=== PATIENT | female | born 1970 ===

== ENCOUNTER 2022-03-21 08:27 | Day surgery (SDC) | payer OTHER ==
[2022-03-21 08:35] VITALS: BMI 20.5
[2022-03-21 08:56] LABS: MPV 11.1 fL (7.6-11.3)
[2022-03-21 09:00] LABS: Protime INR 1.12
[2022-03-21 09:54] VITALS: TEMP 97.5
--- NOTE | 2022-03-21 10:10 | RAD REPORT ---
EXAM DESCRIPTION: US - Abdomen Exam Limited - 03/21/2022 10:01 am CLINICAL HISTORY: Ascites COMPARISON: None. FINDINGS: The patient presented for paracentesis. Ultrasound demonstrates a a very small amount ascites within the abdomen and pelvis. IMPRESSION: Very small amount of ascites within the abdomen and pelvis. Consequently the paracentesi s was not performed.
[2022-03-21 10:17] VITALS: BP 93/52; O2SAT 99
== END 2022-03-21 10:11 | disposition home or self-care (01) ==
LOC: DS 08:27
PROVIDERS: ATTEND Internal Medicine Gastroenterology
DX: R18.8 Other ascites (principal); K74.60 Unspecified cirrhosis of liver; Z53.09 Procedure and treatment not carried out because of other contraindication
CPT/HCPCS: 36415; 76705; 85049; 85610; 85730

== ENCOUNTER 2022-12-14 10:22 | Emergency (ER) | payer OTHER ==
--- OUTSIDE RECORDS SUMMARY | 2022-12-14 10:25 | XMS REPORT | Continuity of Care Document ---
:1970 Author Organization [facility] t Address [address] [place] [address] Care Team Providers Name Role Phone JOSE VALE Primary Care Physician Unavailable Vin Oconnor Attending Clinician [facility] Attending Clinician Unavailable Ascencion Holcomb MD Attending Clinician Unavailable Alex Surgeon Attending Clinician Unavailable IRVING COX Attending Clinician Unavailable Irving Cox Attending Clinician [facility] Admitting Clinician Unavailable Payers Payer Name Policy Type Policy Number Effective Date Expiration Date S mally [employer] PPO OPEN [id number] 2020 00:00:00 [facility] NAP Problems This patient has no known problems. Allergies, Adverse Reactions, Alerts Allergy Allergy Status Severity Reaction(s) Onset Inactive Treating Comm ents Source Name Type Date Date Clinician ADHESIVE Allergy [facility] PENICILL Allergy Active [facility] Adhesive Propensi Active Use Paper [facility] adverse 00:00: only; Medical reaction 00 [facility] s tolerated Penicill Propensi Active [facility] adverse 00:00: Medical reaction 00 Center s Social History Social Habit Start Date Stop Date Quantity Comments Source History SDOH [facility] Alcohol Std Drinks Medica l Center History SDOH [facility] Alcohol Binge Medical Jey ter History SDOH [facility] Alcohol Comment Medical C enter Alcohol intake 2022-04-06 2022-04-[address] [facility] 00:00:00 00:00:00 non-drinker Medical Garo pennington (finding) Tobacco use and 2022-04-05 2022-04-[address] [facility] exposure 00:00:00 00:00:00 Medical Center History SDOH 2022-04-05 2022-04-[address] [facility] Alcohol Frequency 00:00:00 00:00:00 Medical Center Sex Assigned At [birth year] [facility] 00:00:00 00:00:00 Medical Center Smoking Status Start Date Stop Date Source Tobacco smoking consumption [facility] unknown Current every day smoker 2022-04-05 00:00:00 [facility] Medications Ordered Filled Start Stop Current Ordering Indication Dosage Frequency Signature Comments Components Source Medication Medication Date Date Medication? Clinician (SIG) Name Name carvediloL Yes 6.25mg Take 6.[address] (COREG) 6-02 mg by [facility] 6.25 MG 17:22: mouth 2 Medical tablet 01 (two) Center times daily with breakfast and dinner. furosemide Yes 20mg Q.5D Take [address] (LASIX) 20 6-02 by mouth 2 Emma es MG tablet 17:22: (two) Medical 01 times Center daily. spironolact Yes 25mg QD Take [address] one 6-02 by mouth [facility] (ALDACTONE) 17:22: daily. Medi irma 25 MG 01 Center tablet Vital Signs Vital Name Observation Time Observation Value Comments Source HEIGHT 2022-04-06 09:00:00 167.6 cm WEIGHT 2022-04-06 09:00:00 57.7 kg HEIGHT 2022-04-05 16:18:00 170.2 cm WEIGHT 2022-04-05 16:18:00 58.06 kg HEIGHT 2022-04-06 09:00:00 167.6 cm WEIGHT 2022-04-06 09:00:00 57.7 kg HEIGHT 2022-04-05 16:18:00 170.2 cm WEIGHT 2022-04-05 16:18:00 58.06 kg HEIGHT 2022-04-06 09:00:00 167.6 cm WEIGHT 2022-04-06 09:00:00 57.7 kg HEIGHT 2022-04-05 16:18:00 170.2 cm WEIGHT 2022-04-05 16:18:00 58.06 kg Body height 2022-08-25 14:41:00 167.6 cm [facility] Body weight 2022-08-25 14:41:00 62.596 kg [facility] BMI 2022-08-25 14:41:00 22.27 kg/m2 [facility] Systolic blood 2022-04-06 17:00:00 111 mm[Hg] [facility] Diastolic blood 2022-04-06 17:00:00 57 mm[Hg] [facility] Heart rate 2022-04-06 17:00:00 79 /min [facility] Body temperature 2022-04-06 17:00:00 36.44 [facility] Respiratory rate 2022-04-06 17:00:00 16 /min [facility] Oxygen saturation in 2022-04-06 17:00:00 97 /min [facility] Arterial blood by Medical Ce nter Pulse oximetry Body height 2022-04-06 09:00:00 167.6 cm [facility] Body weight 2022-04-06 09:00:00 57.7 kg [facility] BMI 2022-04-06 09:00:00 20.53 kg/m2 [facility] Procedures Procedure Date / Time Performing Clinician Source Performed MRI CHOLANGIOGRAM W WO 2022-08-25 15:40:28 Vin Oconnor [facility] CONTRAST TISSUE EXAM 2022-04-06 14:07:00 Ascenc[facility] Holcomb [facility] US LIVER BIOPSY 2022-04-06 14:04:00 System, Provider Not [facility] [place] CBC W/PLT COUNT & AUTO 2022-04-06 10:05:00 Elizabeth May [facility] DIFFERENTIAL [facility] PROTHROMBIN TIME/INR 2022-04-06 10:05:00 Elizabeth May [facility] CBC W/PLT COUNT & AUTO 2022-04-06 10:05:00 Elizabeth May [facility] DI[facility] Plan of Care Planned Activity Planned Date Details Comments Source Future Scheduled 2022-11-[address] [facility] Test 00:00:00 (12+) [code = Medical Center DEPRESSION SCREENING (12+)] Future Scheduled 2022-10-24 COVID-19 VACCINE (#1) [facility] Test 22:50:18 [code = COVID-19 VACCINE (#1)] Future Scheduled 2022-10-24 Pneumococcal Vaccine: [facility] Test 22:50:18 Pediatrics (0 to 5 Years) and At-Risk Patients (6 to 64 Years) (1 - PCV) [code = Pneumococcal Vaccine: Pediatrics (0 to 5 Years) and At-Risk Patients (6 to 64 Years) (1 - PCV)] Future Scheduled 2022-10-24 Hepatitis C screening [facility] Test 22:50:18 (procedure) [code = 555503494] Future Scheduled 2022-10-24 Screening for [facility] Test 22:50:18 malignant neoplasm of cervix (procedure) [code = 662260383] Future Scheduled 2022-10-24 BREAST CANCER [facility] Test 22:50:18 SCREENING [code = BREAST CANCER SCREENING] Future Scheduled 2022-10-24 COLONOSCOPY SCREENING [facility] Test 22:50:18 [code = COLONOSCOPY SCREENING] Future Scheduled 2022-10-24 SHINGLES VACCINES (1 Met [facility] Test 22:50:18 of 2) [code = SHINGLES VACCINES (1 of 2)] Future Scheduled 2022-10-24 INFLUENZA VACCINE Method [facility] Test 22:50:18 [code = INFLUENZA VACCINE] Future Scheduled 2022-10-24 HEPATITIS B VACCINES Met [facility] Test 22:50:18 (1 of 3 - 3-dose series) [code = HEPATITIS B VACCINES (1 of 3 - 3-dose series)] Future Scheduled 2022-07-07 INFLUENZA VACCINE (#1) [facility] Test 00:00:00 [code = INFLUENZA Medical Ce nter VACCINE (#1)] Future Scheduled 2018 SHINGLES VACCINES ([address] [facility] Test 00:00:00 of 2) [code = SHINGLES Medic al Center VACCINES (1 of 2)] Future Scheduled [address] [facility] Test 00:00:00 (procedure) [code = Medical Center [id number]] Future Scheduled [address] [facility] Test 00:00:00 malignant neoplasm of Medica l Center cervix (procedure) [code = 309617511] Future Scheduled 1987 DTAP/TDAP/TD VACCINES [facility] Test 00:00:00 (1 - Tdap) [code = Medical C enter DTAP/TDAP/TD VACCINES (1 - Tdap)] Future Scheduled 1986 HEPATITIS C SCREENING [facility] Test 00:00:00 [code = HEPATITIS C Medical Center SCREENING] Future Scheduled [address] [facility] Test 00:00:00 Counseling and Medical Cente r Screening (12+) [code = Tobacco Cessation Counseling and Screening (12+)] Future Scheduled [address] [facility] Test 00:00:00 0-64 YRS (1 - PCV) Medical C enter [code = PNEUMOCOCCAL VACCINE 0-64 YRS (1 - PCV)] Future Scheduled 1970 COVID-19 VACCINE (#1) [facility] Test 00:00:00 [code = COVID-[address] VACCINE (#1)] Future Scheduled [address] [facility] Test 00:00:00 malignant neoplasm of Medica l Center breast (procedure) [code = 757988900] Future Scheduled [address] [facility] Test 00:00:00 (combo) [code = CT Medical C enter Colonography (combo)] Future Scheduled [address] [facility] Test 00:00:00 malignant neoplasm of Medica l Center colon (procedure) [code = 623417880] Future Scheduled [address] [facility] [facility] Test 00:00:00 malignant neoplasm of Medica l Center colon (procedure) [code = 172194415] Future Scheduled [address] [facility] [facility] Test 00:00:00 malignant neoplasm of Medica l Center colon (procedure) [code = 765356474] Future Scheduled [address] [facility] Test 00:00:00 malignant neoplasm of Medica l Center colon (procedure) [code = 308291398] Future Scheduled 1970 Sigmoidoscopy [code = CH Damián Alfredo Test 00:00:00 Sigmoidoscopy] Medical Centsidra r Encounters Start End Encounter Admission Attending Care Care Encounter Source Date/Time Date/Time Type Type Clinicians Facility Department ID 2022-08-25 2022-08-25 Outpatient [facility] [id number] [place] 00:00:00 00:00:[address] 2022-08-11 2022-08-11 Transcribe Vin Oconnor [id number] Methodi 00:00:00 00:00:[id number] 3.430.2.7 Hospit a .3.564172 l .8 2022-04-06 2022-04-06 [facility]patient [facility] [id number] [facility] 08:52:00 17:22:00 2022-04-06 2022-04-06 [facility] Holcomb [facility] [id number] 08:52:00 17:22:00 Encounter [facility] 2022-04-06 2022-04-06 Surgery [facility] [id number] 12:00:00 12:30:00 [facility] 2022-04-06 2022-04-06 Outpatient EL [facility], [facility] [id number] SLE 11:03:49 11:03:49 [place] 2022-04-05 2022-04-[address] [facility] [id number] SLE 16:23:24 23:59:00 2022-04-05 2022-04-05 [facility] [id number] 15:05:00 23:59:00 Encounter [facility] 2022-04-05 2022-04-05 Travel [facility] [id number] [facility] 00:00:00 00:00:00 [facility] 2022-03-31 2022-03-31 Outside Kenny, [facility] [id number] 00:00:00 00:00:00 Orders [facility] Results Test Description Test Time Test Comments Results Result [facility] e Comments U/S, BIOPSY, Reason for LIVER 2 Exam:->UNSPECI 18:38:00 [facility] 1970 Sex: F FINAL REPORT History: Cirrhosis. PROCEDURE: Following informed written consent, limited sonographic examination of the right upper quadrant and liver were performed. A skin site was identified, prepped and draped in the usual sterile manner. 2% lidocaine was given locally for anesthesia. Additionally, the patient received 1 mg IV Versed and 50 mcg IV fentanyl for conscious sedation and pain control. Vital signs were monitored and remained stable. Conscious sedation and continuous patient monitoring were provided by the attending radiologist and a registered nurse for 10 minutes during the procedure. Using ultrasound guidance, a 16-gauge Biopince needle and an anterolateral right upper quadrant approach, a total of two 16-gauge core tissue samples were obtained from the liver and submitted in formalin to pathology for evaluation. Overall, the patient tolerated the procedure well without immediate competitions and was discharged from the department in stable condition. FINDINGS: Limited sonographic examination the liver performed prior to, during and following the biopsy demonstrates a fusiform heterogeneous liver echogenicity. During the biopsy, the needle tip is noted to lie within the right hepatic lobe. After the biopsy, there are no perihepatic fluid collections or evidence for hemorrhage. IMPRESSION: 1. Technically successful uncomplicated ultrasound-guided core biopsy of the liver. Signed: Lesli Fritzort Verified Date/Time: 04/07/2022 18:38:15 Reading Location: [facility] Imaging [place] [address] 1.310.12 UE EXAM Surgical Pathology Report 2 Case: [id number] 13:22:47 Authorizing Provider: [facility] Holcomb MD Collected: 04/06/2022 02:07 PM Ordering Location: [facility] PERIOPERATIVE Received: 04/06/2022 04:25 PM SERVICES Pathologist: Leah Maurice MD Specimen: Biopsy, Liver A. LIVER, ULTRASOUND GUIDED BIOPSY: -Liver with cirrhosis, see comment Signing Pathologist Direct Phone Line: [phone] y signed by Leah Maurice MD on 04/07/2022 at 1:22 PMTrichrome and reticulin stain show bridging fibrosis with well-formed micro nodules formation (stage IV), consistent with cirrhosis. The portal tracts are incorporated into the fibrous septa and show moderate lymphocytic inflammatory infiltrate, with one well-formed lymphoid aggregate with germinal center and extensive bile ductular proliferation. Several of the bile ductules are infiltrated by neutrophils (acute cholangitis).. Mild interface inflammatory activity is noted around some of the nodules. The hepatic nodules show moderate cholestasis and a few ballooned hepatocytes are seen, however no significant steatosis is noted. Several Usha Denk bodies are noted in ballooned hepatocytes, especially at the periphery of the nodules.Iron stain shows no evidence of iron deposition. PAS-D stain shows no evidence of hyaline globules. Patient is a 51 year old woman with clinical history of portal hypertension and cirrhosis. No liver function tests are available on the electronic records. The findings are consistent with cirrhosis. Based on the presence of scattered ballooned hepatocytes and Usha hyaline, this may represent a burned-out steatohepatitis. Chronic hepatitis C should be clinically ruled out.Clinical correlation is recommended. [id number] cirrhosis of liverA. Biopsy, Liver.Received in formalin labeled with the patient's name, medical record number and "liver" are 2 díaz soft tissue cores measuring up to 1.6 cm in greatest length by 0.2 cm in diameter, which are submitted in toto in A1.GRISELDA Talbot, HT (ASCP)PerformedThe interpretation of this case included the use of immunohistochemistry or special stains.Control Slides Examined: In-house known positive controls were evaluated along with the test tissue. These control slides run alongside of the patients sample show appropriate staining. Internal positive and negative controls when available are evaluated Immunohistochemistry technical testing was performed at [facility], Pathology Laboratory where it was developed and its performance characteristics were determined. It has not been cleared or approved by the U.S. Food and Drug Administration. The FDA has determined that such clearance or approval is not necessary. The test is used for clinical purposes. It should not be regarded as investigational or for research. This laboratory is certified under the Clinical Laboratory Improvement Amendments of 1988 (CLIA-88) as qualified to perform high complexity clinical laboratory testing.[facility], Department of Pathology, [address] [place] [address], [facility], [address] [place] [address], [facility], [address] [place] [address], PROTHROMBIN TIME/INR 2022-04-06 12:38:20 Test Item Value Reference Range Interpretation Comme nts PROTIME (Eons) (test code 13.4 seconds 11.9-14.2 = 759) INR (Eons) (test code = 1.04 See_Comment [ Automated message] The [employer] system which ge nerated this result transmit waldo reference range: <=5.90. The reference range was not u sed to interpret this result as normal/abnormal . RECOMMENDED COUMADIN/WARFARIN INR THERAPY RANGESSTANDARD DOSE: 2.0 - 3.0 Includes: PROPHYLAXIS for venous thrombosis, systemic embolization; TREATMENT for venous thrombosis and/or pulmonary embolus.HIGH RISK: Target INR is 2.5-3.5 for patients with mechanical heart valves.CBC W/PLT COUNT & AUTO [id number] 12:32:59 Test Item Value Reference Range Interpretation Comments WHITE BLOOD CELL COUNT 11.6 K/ L 3.5-10.5 H (BEAKER) (test code = 775) RED BLOOD CELL COUNT 3.82 M/ L 3.93-5.22 L (BEAKER) (test code = 761) HEMOGLOBIN (BEAKER) 13.3 GM/DL 11.2-15.7 (test code = 410) HEMATOCRIT (BEAKER) 37.9 % 34.1-44.9 (test code = 411) MEAN CORPUSCULAR 99.2 fL 79.4-94.8 H VOLUME (BEAKER) (test code = 753) MEAN CORPUSCULAR 34.8 pg 25.6-32.2 H HEMOGLOBIN (BEAKER) (test code = 751) MEAN CORPUSCULAR 35.1 GM/DL 32.2-35.5 HEMOGLOBIN CONC (BEAKER) (test code = 752) RED CELL DISTRIBUTION 16.1 % 11.7-14.4 H WIDTH (BEAKER) (test code = 412) PLATELET COUNT 189 K/CU MM 150-450 (BEAKER) (test code = 756) MEAN PLATELET VOLUME Unable to report due (BEAKER) (test code = to abn ormal Platelet 754) population distribution. NUCLEATED RED BLOOD 0 /100 WBC 0-0 CELLS (BEAKER) (test code = 413) NEUTROPHILS RELATIVE 69 % PERCENT (BEAKER) (test code = 429) LYMPHOCYTES RELATIVE 19 % PERCENT (BEAKER) (test code = 430) MONOCYTES RELATIVE 9 % PERCENT (BEAKER) (test code = 431) EOSINOPHILS RELATIVE 2 % PERCENT (BEAKER) (test code = 432) BASOPHILS RELATIVE 1 % PERCENT (BEAKER) (test code = 437) NEUTROPHILS ABSOLUTE 7.96 K/ L 1.56-6.13 H COUNT (BEAKER) (test code = 670) LYMPHOCYTES ABSOLUTE 2.22 K/ L 1.18-3.74 COUNT (BEAKER) (test code = 414) MONOCYTES ABSOLUTE 1.00 K/ L 0.24-0.36 H COUNT (BEAKER) (test code = 415) EOSINOPHILS ABSOLUTE 0.22 K/ L 0.04-0.36 COUNT (BEAKER) (test code = 416) BASOPHILS ABSOLUTE 0.11 K/ L 0.01-0.08 H COUNT (BEAKER) (test code = 417) IMMATURE 1 % 0-1 GRANULOCYTES-RELATIVE PERCENT (BEAKER) (test code = 2801)
[2022-12-14] MEDS ORDERED: PANTOPRAZOLE 40 MG INJ ONE (11:26)
[2022-12-14 11:49] LABS: Hematocrit 27.1 % (36.0-45.0); MPV 10.3 fL (7.6-11.3); RBC Red Blood Cell Count 2.38 M/uL (3.86-4.86)
[2022-12-14 11:51] LABS: Protime INR 1.35
[2022-12-14] MEDS ORDERED: NA CHLORIDE 0.9% 1,000 ML ONE (12:00)
[2022-12-14] MEDS ORDERED: OCTREOTIDE 500 MCG in NA CHLORIDE 0.9% 500 ML IV SCH (12:00)
[2022-12-14] MEDS ORDERED: PANTOPRAZOLE INJ 80 MG in NA CHLORIDE 0.9% 250 ML IV SCH (12:00)
[2022-12-14] MEDS ORDERED: NA CHLORIDE 0.9% 500 ML ONE (12:08)
[2022-12-14 12:15] LABS: Albumin 2.2 g/dL (3.4-5.0); Potassium 4.5 mmol/L (3.5-5.1); Protein, Total 5.6 g/dL (6.4-8.2)
[2022-12-14 12:16] LABS: Bilirubin Total 5.4 mg/dL (0.2-1.0)
[2022-12-14 12:26] LABS: SARS-CoV-2 Antigen Rapid Res Negative (Negative)
--- NOTE | 2022-12-14 12:27 | RAD REPORT ---
EXAM DESCRIPTION: RAD - Chest Single View - 12/14/2022 12:22 pm CLINICAL HISTORY: COUGH Chest pain. COMPARISON: No comparisons FINDINGS: Portable technique limits examination quality. The lungs are grossly clear. The heart is normal in size. No displaced fractures. IMPRESSION: No acute intrathoracic process suspected.
--- NOTE | 2022-12-14 12:45 | EDPHYS ---
Physician Documentation [facility] Name: Jessi Keller Age: 52 yrs Sex: Female : 1970 Arrival Date: 12/14/2022 Time: 10:26 Bed 15 Private MD: ED Physician Kirill Mendoza HPI: 12/14 11:48 This 52 yrs old Unknown Female presents to ER via Ambulatory with complaints of ms3 Vomiting, Nose Bleed. 12:26 52-year-old female with past medical history of primary biliary cirrhosis and ms3 autoimmune hepatitis presents for hematemesis that began at 9 AM this morning. Patient states she had 3 episodes prior to coming to the emergency department. Patient notes she has had intermittent nosebleeds throughout the week. Patient also has a cough. Patient denies pain at this time. Patient denies alleviating or inciting factors.. Historical: - Allergies: 10:30 PENICILLINS; aa5 - Home Meds: 11:17 furosemide 40 mg Oral tab 1 tab once daily [Active]; spironolactone 100 mg Oral tab 1 ko1 tab once daily [Active]; prednisone 10 mg Oral tab once daily [Active]; azathioprine 50 mg Oral tab once daily [Active]; Vitamin D d2 Oral 50,000 unit daily [Active]; - PMHx: 10:30 Hepatitis; Cirrhosis of liver; Ascites; aa5 - PSHx: 10:30 hysterectomy; Tonsillectomy; aa5 - Immunization history:: Adult Immunizations unknown. - Social history:: Smoking status: Patient reports the use of cigarette tobacco products, smokes one pack cigarettes per day. ROS: 12:26 Constitutional: Negative for fever, and chills. Neck: Negative for injury, pain, and ms3 swelling, Cardiovascular: Negative for chest pain, and palpitations. 12:26 : Negative for injury, bleeding, discharge, and swelling. 12:26 ENT: Positive for nose bleed. 12:26 Abdomen/GI: Positive for hematemesis. 12:26 All other systems are negative. Exam: 12:26 Constitutional: This is a well developed, well nourished patient who is awake, alert, ms3 and in no acute distress. Head/Face: Normocephalic, atraumatic. Neck: Trachea midline, no cervical lymphadenopathy. Supple, full range of motion without nuchal rigidity, or vertebral point tenderness. No Meningismus. Chest/axilla: Normal chest wall appearance and motion. Nontender with no deformity. Respiratory: Lungs have equal breath sounds bilaterally, clear to auscultation and percussion. No rales, rhonchi or wheezes noted. No increased work of breathing, no retractions or nasal flaring. Abdomen/GI: Soft, non-tender, with normal bowel sounds. No distension or tympany. No guarding or rebound. No evidence of tenderness throughout. 12:26 Cardiovascular: Rate: tachycardic, Rhythm: regular, Pulses: no pulse deficits are appreciated, Heart sounds: normal. 12:26 Skin: Appearance: Color: jaundiced. 12:33 ECG was reviewed by the Attending Physician. ms3 Vital Signs: 10:29 BP 93 / 54; Pulse 113; Resp 20 S; Temp 97.5(TE); Pulse Ox 99% on R/A; Weight 61.69 kg aa5 (R); Height 5 ft. 8 in. (172.72 cm) (R); 11:20 BP 85 / 55; Pulse 106; Resp 18; Pulse Ox 100% ; ko1 11:20 BP 80 / 31; Pulse 107; Resp 18; Pulse Ox 99% ; ko1 12:06 BP 101 / 52; Pulse 106; Resp 17; Pulse Ox 94% ; ko1 12:45 BP 95 / 59; Pulse 108; Resp 17; Pulse Ox 99% ; ko1 13:00 BP 104 / 55; Pulse 102; Resp 17; Pulse Ox 97% ; ko1 13:15 BP 99 / 57; Pulse 105; Resp 15; Pulse Ox 97% ; ko1 13:30 BP 111 / 66; Pulse 105; Resp 15; Pulse Ox 100% ; ko1 13:45 BP 98 / 52; Pulse 101; Resp 14; Pulse Ox 99% ; ko1 14:00 BP 103 / 57; Pulse 104; Resp 15; Pulse Ox 97% ; ko1 14:15 BP 96 / 55; Pulse 102; Resp 15; Pulse Ox 96% ; ko1 14:30 BP 104 / 59; Pulse 107; Resp 17; Pulse Ox 98% ; ko1 14:45 BP 89 / 52; Pulse 106; Resp 15; Pulse Ox 98% ; ko1 15:09 BP 97 / 51; Pulse 103; Resp 17; Pulse Ox 97% ; ko1 15:52 BP 113 / 85; Pulse 108; Resp 18; Pulse Ox 98% on R/A; ko1 10:29 Body Mass Index 20.68 (61.69 kg, 172.72 cm) aa5 MDM: 11:02 Patient medically screened. ms3 11:57 ED course: Patient with 2 episodes of tanner blood in the ED. No epistaxis in the ED. 5 ms3 total episodes of hematemesis since 9 am. Patient blood pressure 80/31. Emergent blood ordered. patient's states patient's normal blood pressure is high 80's to 90's. Patient requests to be transferred to [facility].. 12:26 Differential diagnosis: gastritis, Varicocele bleed vs Unspecified Upper GI bleed vs [facility] Epistaxis. 12:51 ED course: Discussed case with patient's lead burner, Dr Rowell, and he is at [address]. Would like patient at [facility] if possible.. 13:38 ED course: [facility] and [facility] do not have ICU beds available. Attempting to [facility] transfer to [facility]. 14:11 ED course: Discussed case with Dr Jacinto and he accepts patient to [facility] ICU.. ms3 14:11 Data reviewed: vital signs, nurses notes, lab test result(s), EKG, radiologic studies, [facility] plain films. Consideration of Admission/Observation Patient Transferred to [facility] ICU. Management of patient was discussed with the following: ICU physician Dr Jacinto. I considered the following discharge prescriptions or medication management in the emergency department Medications were administered in the Emergency Department. See MAR. Independent interpretation of the following test(s) in the Emergency Department X-Ray: My interpretation is CXR image negative. Historians other than the Patient: Daughter/Son: Daughter. Counseling: I had a detailed discussion with the patient and/or guardian regarding: the historical points, exam findings, and any diagnostic results supporting the discharge/admit diagnosis, lab results, radiology results, the need to transfer to another facility, [facility] does not immediately have the required specialist. 12/14 11:04 Order name: CBC with Diff; Complete Time: 12:35 [facility] 12/14 11:04 Order name: CMP; Complete Time: 12:35 [facility] 12/14 11:04 Order name: PT-INR; Complete Time: 11:57 ms3 12/14 11:29 Order name: Bb Add On bd 12/14 11:59 Order name: CXR XRAY; Complete Time: 12:35 ms3 12/14 12:02 Order name: ABO/RH typing EDMS 12/14 12:02 Order name: Antibody Screen EDMS 12/14 12:02 Order name: Packed RBC Leukored EDMS 12/14 12:04 Order name: SARS-COV-2 Antigen Rapid; Complete Time: 12:35 bd 12/14 12:35 Order name: Urine Microscopic Only; Complete Time: 14:06 ms3 12/14 12:35 Order name: Blood Culture Adult (2) ms3 12/14 13:25 Order name: Urine Dipstick-Ancillary; Complete Time: 14:06 EDMS 12/14 11:04 Order name: IV Saline Lock; Complete Time: 11:39 ms3 12/14 11:04 Order name: Labs collected and sent; Complete Time: 11:41 ms3 12/14 11:15 Order name: Vital Signs; Complete Time: 11:41 ms3 12/14 11:32 Order name: EKG; Complete Time: 11:32 ms3 12/14 12:35 Order name: Urine Dipstick-Ancillary (obtain specimen); Complete Time: 13:27 ms3 EC:33 Rate is 98 beats/min. Rhythm is regular. QRS Lolo is Normal. CA interval is normal. ms3 Clinical impression: Normal ECG. Interpreted by me. Reviewed by me. Administered Medications: 11:40 Drug: ProTONIX (pantoprazole) 40 mg Route: IVP; Site: left antecubital; ko1 11:55 Drug: ProTONIX (pantoprazole) 8 mg/hr Route: IV; Rate: 25 ml/hr; Site: right forearm; ko1 11:55 Drug: Octreotide Infusion (50 mcg/hr) - (Octreotide 500 mcg, NS 0.9% 500 ml) Route: IV; ko1 Rate: 50 ml/hr; Site: right forearm; 11:57 Drug: NS 0.9% 1000 ml Route: IV; Rate: 1000 ml; Site: left antecubital; ko1 15:23 Drug: Ciprofloxacin 400 mg Volume: 200 ml; Route: IVPB; Infused Over: 60 mins; Site: ko1 left antecubital; Disposition Summary: 12/14/22 12:44 Transfer Ordered Reason: Higher level of care ms3 Condition: Serious ms3 Problem: new ms3 Symptoms: are unchanged ms3 Transfer Location: [facility](12/14/22 13:39) ms3 Accepting Physician: (12/14/22 15:53) cele1 Diagnosis - Upper GI bleed ms3 - Hypotension, unspecified ms3 - Other cirrhosis of liver ms3 - Primary biliary cirrhosis ms3 - Tachycardia, unspecified ms3 - Elevated white blood cell count, unspecified ms3 Forms: - Medication Reconciliation Form ms3 - SBAR form ms3 Critical care time excluding procedures: 14:11 Critical care time: Consultation: 10 minutes, Family Intervention: 10 minutes. Total ms3 time: 20 minutes Signatures: Dispatcher [employer] EDDiana Banks, RN RN aa5 Kirill Mendoza DO DO ms3 Priyanka Bradford, RN RN ko1 Corrections: (The following items were deleted from the chart) 12:39 11:05 TYPE AND SCREEN+BB.LAB.BRZ ordered. EDMS EDMS 13:39 12:44 ms3 ms3 13:39 12:44 [facility] ms3 ms3 15:09 11:33 Packed RBC Leukored ordered. EDMS EDMS 15:53 13:39 ms3 ko1
--- NOTE | 2022-12-14 12:45 | ER ---
Nurse's Notes [facility] Name: Jessi Keller Age: 52 yrs Sex: Female : 1970 Arrival Date: 12/14/2022 Time: 10:26 Bed 15 Private MD: Diagnosis: Upper GI bleed;Hypotension, unspecified;Other cirrhosis of liver;Primary biliary cirrhosis;Tachycardia, unspecified;Elevated white blood cell count, unspecified Presentation: 12/14 10:29 Chief complaint: Patient states: "I threw up blood 3 times today". Pt cough, runny aa5 nose, nose bleeds x 1 week ago. Coronavirus screen: cough unrelated to allergies. Ebola Screen: Patient denies travel to an Ebola-affected area in the 21 days before illness onset. Initial Sepsis Screen: Does the patient meet any 2 criteria? HR > 90 bpm. Does the patient have a suspected source of infection? No. Patient's initial sepsis screen is negative. Risk Assessment: Do you want to hurt yourself or someone else? Patient reports no desire to harm self or others. Onset of symptoms was December 2022. 10:29 Acuity: MARYSOL 3 aa5 10:29 Method Of Arrival: Ambulatory aa5 Historical: - Allergies: 10:30 PENICILLINS; aa5 - Home Meds: 11:17 furosemide 40 mg Oral tab 1 tab once daily [Active]; spironolactone 100 mg Oral tab 1 ko1 tab once daily [Active]; prednisone 10 mg Oral tab once daily [Active]; azathioprine 50 mg Oral tab once daily [Active]; Vitamin D d2 Oral 50,000 unit daily [Active]; - PMHx: 10:30 Hepatitis; Cirrhosis of liver; Ascites; aa5 - PSHx: 10:30 hysterectomy; Tonsillectomy; aa5 - Immunization history:: Adult Immunizations unknown. - Social history:: Smoking status: Patient reports the use of cigarette tobacco products, smokes one pack cigarettes per day. Screenin:00 [facility] ED Fall Risk Assessment (Adult) History of falling in the last 3 months, ko1 including since admission No falls in past 3 months (0 pts) Confusion or Disorientation No (0 pts) Intoxicated or Sedated No (0 pts) Impaired Gait No (0 pts) Mobility Assist Device Used No (0 pt) Altered Elimination No (0 pt) Score/Fall Risk Level 0 - 2 = Low Risk Oriented to surroundings, Maintained a safe environment, Educated pt \\T\\ family on fall prevention, incl call for assistance when getting out of bed, Assessed \\T\\ reinforced patient's understanding of fall precautions, Provided non-skid footwear, Hourly rounding (assess needs \\T\\ fall precautionary measures) done, Used ambulatory aids as needed (educated on \\T\\ assisted with), Used gait belt as appropriate. Abuse screen: Denies threats or abuse. Denies injuries from another. Nutritional screening: No deficits noted. Tuberculosis screening: No symptoms or risk factors identified. Assessment: 11:00 General: Appears distressed, comfortable, ill, Behavior is calm, cooperative, ko1 appropriate for age. Pain: Denies pain. Neuro: No deficits noted. Cardiovascular: Rhythm is sinus tachycardia. Respiratory: No deficits noted. GI: Abdomen is distended, noted to have ascites, Pt is actively vomiting bright red blood. : No deficits noted. EENT: No deficits noted. Derm: Skin is jaundiced. Musculoskeletal: No deficits noted. 13:00 Reassessment: Order for blood cultures received after blood transfusion initiated, ko1 Called micro to inquire about drawing blood cultures while the patient is getting a blood transfusion, per Sary, you have to wait 30 minutes post transfusion to draw cultures. Dr Mendoza notified. 14:54 Reassessment: attempted to call report to receiving facility x2 with no answer. ko1 Vital Signs: 10:29 BP 93 / 54; Pulse 113; Resp 20 S; Temp 97.5(TE); Pulse Ox 99% on R/A; Weight 61.69 kg aa5 (R); Height 5 ft. 8 in. (172.72 cm) (R); 11:20 BP 85 / 55; Pulse 106; Resp 18; Pulse Ox 100% ; ko1 11:20 BP 80 / 31; Pulse 107; Resp 18; Pulse Ox 99% ; ko1 12:06 BP 101 / 52; Pulse 106; Resp 17; Pulse Ox 94% ; ko1 12:45 BP 95 / 59; Pulse 108; Resp 17; Pulse Ox 99% ; ko1 13:00 BP 104 / 55; Pulse 102; Resp 17; Pulse Ox 97% ; ko1 13:15 BP 99 / 57; Pulse 105; Resp 15; Pulse Ox 97% ; ko1 13:30 BP 111 / 66; Pulse 105; Resp 15; Pulse Ox 100% ; ko1 13:45 BP 98 / 52; Pulse 101; Resp 14; Pulse Ox 99% ; ko1 14:00 BP 103 / 57; Pulse 104; Resp 15; Pulse Ox 97% ; ko1 14:15 BP 96 / 55; Pulse 102; Resp 15; Pulse Ox 96% ; ko1 14:30 BP 104 / 59; Pulse 107; Resp 17; Pulse Ox 98% ; ko1 14:45 BP 89 / 52; Pulse 106; Resp 15; Pulse Ox 98% ; ko1 15:09 BP 97 / 51; Pulse 103; Resp 17; Pulse Ox 97% ; ko1 15:52 BP 113 / 85; Pulse 108; Resp 18; Pulse Ox 98% on R/A; ko1 10:29 Body Mass Index 20.68 (61.69 kg, 172.72 cm) aa5 ED Course: 10:26 Patient arrived in ED. as 10:28 Kirill Mendoza DO is Attending Physician. ms3 10:28 Arm band placed on. aa5 10:30 Triage completed. aa5 10:45 Priyanka Bradford, SHAWN is Primary Nurse. ko1 11:00 Patient has correct armband on for positive identification. Placed in gown. Bed in low ko1 position. Call light in reach. Side rails up X 1. Adult w/ patient. Client placed on continuous cardiac and pulse oximetry monitoring. NIBP monitoring applied. marketing program manager on. Door closed. Warm blanket given. Pillow given. 11:35 Inserted saline lock: 22 gauge in right forearm, using aseptic technique. Blood ko1 collected. 11:38 Inserted saline lock: 22 gauge in left antecubital area, using aseptic technique. ap3 11:40 PT-INR Sent. ko1 11:41 CBC with Diff Sent. ko1 11:41 CMP Sent. ko1 11:41 Bb Add On Sent. ko1 12:09 SARS-COV-2 Antigen Rapid Sent. ko1 12:13 initiated transfer to [facility]. bd 12:24 CXR XRAY In Process Unspecified. EDMS 12:[address] [facility]. bd 13:06 Packed RBC Leukored Sent. ko1 13:11 pt denied at [facility] due to no capacity at this time,per Sam. bd 13:11 pt denied at [facility], due to no capacity at this time,per whitney. bd 13:12 initiated transfer to [facility]. bd 13:27 Urine Microscopic Only Sent. ko1 14:13 pt accepted in transfer to [facility] by dr Peres, admit approval bd given by Darya Daley, pt going to [address] [id number] bed 7. 14:42 Blood Culture Adult (2) Sent. ko1 15:52 No provider procedures requiring assistance completed. Patient transferred, IV remains ko1 in place. Administered Medications: 11:40 Drug: ProTONIX (pantoprazole) 40 mg Route: IVP; Site: left antecubital; ko1 11:55 Drug: ProTONIX (pantoprazole) 8 mg/hr Route: IV; Rate: 25 ml/hr; Site: right forearm; ko1 11:55 Drug: Octreotide Infusion (50 mcg/hr) - (Octreotide 500 mcg, NS 0.9% 500 ml) Route: IV; ko1 Rate: 50 ml/hr; Site: right forearm; 11:57 Drug: NS 0.9% 1000 ml Route: IV; Rate: 1000 ml; Site: left antecubital; ko1 15:23 Drug: Ciprofloxacin 400 mg Volume: 200 ml; Route: IVPB; Infused Over: 60 mins; Site: ko1 left antecubital; Medication: 11:00 VIS not applicable for this client. ko1 Outcome: 12:44 ER care complete, transfer ordered by . ms3 15:52 Transferred by ground EMS [facility] to [facility], Transfer ko1 form completed. X-rays sent w/ patient. 15:53 Patient left the ED. ko1 Signatures: Dispatcher [employer] EDMS Karen Kendall Amelia as Calderon, Audri RN RN aa5 Cielo Spears RN RN ap3 Kirill Mendoza DO DO ms3 Priyanka Bradford, SHAWN RN ko1 Corrections: (The following items were deleted from the chart) 12:39 11:41 TYPE AND SCREEN+BB.LAB.BRZ drawn and sent. ko1 EDMS
[2022-12-14 13:24] LABS: Urine Blood Negative (Negative); Urine Glucose Trace (Negative); Urine Protein Trace (Negative); Urine Specific Gravity 1.015 (1.005-1.030); Urine pH 5.5 (5.0-7.0)
[2022-12-14 13:37] LABS: Urine Bacteria <20 /HPF (<20); Urine Mucus 3+ /HPF (None Seen); Urine RBC <5 /HPF (None Seen)
[2022-12-14] MEDS ORDERED: CIPROFLOXACIN 400mg IV 400 MG/200 ML BAG IV ONE (14:47)
[2022-12-14 16:22] VITALS: TEMP 97.5
[2022-12-14 16:38] VITALS: BP 113/85; O2SAT 98
--- NOTE | 2022-12-15 07:57 | EKG ---
Test Date: 2022-12-14 Test Time: 11:38:58 Banquet Waiter/Waitress: PABLITO MEASUREMENT RESULTS: Intervals: Rate: 98 ME: 128 QRSD: 70 QT: 344 QTc: 439 [place]: P: 79 ME: 128 QRS: 75 T: 78 INTERPRETIVE STATEMENTS: Normal sinus rhythm Normal ECG No previous ECG available for comparison Electronically Signed On 12-15-22 07:54:35 CUSTOMER RELATIONSHIP SPECIALIST by Feliciano Rodrigez
== END 2022-12-14 15:53 | disposition short-term general hospital (02) ==
LOC: ER 10:22
PROC: 30233N1 Transfusion of Nonautologous Red Blood Cells into Peripheral Vein, Percutaneous Approach (ICD-10-PCS; principal; 2022-12-14)
DX: K92.0 Hematemesis (principal); I95.9 Hypotension, unspecified; K74.3 Primary biliary cirrhosis; K74.69 Other cirrhosis of liver; R00.0 Tachycardia, unspecified; D72.829 Elevated white blood cell count, unspecified; F17.210 Nicotine dependence, cigarettes, uncomplicated; Z20.822 Contact with and (suspected) exposure to COVID-19; Z88.0 Allergy status to penicillin
CPT/HCPCS: 87040 ×2; 85025; 36415; 86900; 86850; 85610; 86901; 80053; 71045; 87811; 36430; J2354; C9113 ×2; P9016 ×2; J7050 ×2; J7040; J7030; J0744; 81003; 81015; 93005